=== PATIENT | male | born 1965 | race Caucasian/White ===

== ENCOUNTER 2022-12-31 13:11 | Emergency (ER) | payer OTHER, SELFPAY ==
--- NOTE | ~2022-12-31 | XR_ITS ---
XR chest 2V DATE: 12/31/2022 13:37 INDICATION: Left-sided chest pain starting yesterday TECHNIQUE: PA and lateral views COMPARISON: None FINDINGS: Normal heart size. No hilar or mediastinal enlargement. No pulmonary infiltrate or consolid ation, pleural effusion or pulmonary vascular congestion or pneumothorax. Degenerative spurring of th e lower thoracic spine. IMPRESSION: No active cardiopulmonary disease Reviewed, dictated and finalized at location [facility].
--- NOTE | ~2022-12-31 | CT_ITS ---
EXAMINATION: CTA chest PE protocol DATE: 12/31/2022 16:16 INDICATION: Elevated D-dimer TECHNIQUE: Computed tomography angiography (CTA) of the chest was performed with 100 mL Omnipaque-350 intravenous contrast timed to evaluate the pulmonary arteries. Coronal maximum intensity projection 3D-reconstructions were created by the technologist. The dose-length product (DLP) was 1204.90 mGy-cm . Automated exposure control and iterative reconstruction technique were employed. COMPARISON: None. FINDINGS: Lung parenchyma and airways: Small focus of right medial basal scar/atelectasis, otherwise clear. Pleura: Unremarkable. Thoracic inlet, axillae and chest wall: Unremarkable. Thoracic aorta: Normal. Mediastinum: Normal. Heart and pericardium: Normal. Coronary artery calcifications: Absent. Upper abdomen: No significant finding. Bones: No acute osseous finding. Pulmonary arteries: Study quality: Mild motion artifact, overall diagnostic. No pulmonary emboli dete cted. IMPRESSION: No CT evidence of acute pulmonary embolus. No acute intrathoracic process detected. Reviewed, dictated and finalized at location [facility]. IMPRESSION: No CT evidence of acute pulmonary embolus. No acute intrathoracic process detec bhupendra.
--- NOTE | 2022-12-31 13:12 | ECG_ITS ---
Measurements Intervals [place] Rate: 68 P: 35 NE: 165 QRS: -12 QRSD: 98 T: 39 QT: 400 QTc: 428 Interpretive Statements SINUS RHYTHM NORMAL ECG NO PREVIOUS ECG AVAILABLE FOR COMPARISON Electronically Signed On 01-01-2023 16:49:10 CDT by Alexandre Smith M.D.
[2022-12-31 13:21] VITALS: BP 141/90; PULSE 71; RESP 20; TEMP 36.6; O2SAT 96
[2022-12-31] MEDS: ASPIRIN 81 MG CHEWABLE TABLET 324 MG PO (13:38)
[2022-12-31 13:43] LABS: Basophils Absolute Auto 0.1 K/mm3 (0.0-0.1); Basophils Percent Auto 0.6 % (0.2-1.2); Eosinophils Absolute Auto 0.3 K/mm3 (0-0.3); Eosinophils Percent Auto 3.2 % (0-4.4); Hematocrit 54.9 % (42.0-52.0); Immature Granulocyte Absolute 0.05 K/mm3 (0.00-0.031); Immature Granulocyte Percent A 0.6 % (0-0.5); Lymphocytes Absolute Auto 1.99 K/mm3 (0.9-3.2); Lymphocytes Percent Auto 22.4 % (18.3-44.2); Mean Corpuscular HGB Conc 32.8 g/dl (32-36); Mean Corpuscular Hemoglobin 29.2 pg (26-34); Mean Corpuscular Volume 89.1 fl (80-100); Mean Platelet Volume 8.9 fl (7.4-10.4); Monocytes Absolute Auto 0.8 K/mm3 (0.1-0.6); Monocytes Percent Auto 8.8 % (2.6-8.5); Neutrophils Absolute Auto 5.7 K/mm3 (1.3-6.7); Neutrophils Percent Auto 64.4 % (45.5-73.1); Platelet Count Result 344 k/mm3 (150-375); Red Blood Count 6.16 M/mm3 (4.6-6.20); Red Cell Distribution Width 13.6 % (11.5-14.5); White Blood Count 8.9 K/mm3 (4.5-10.0)
[2022-12-31 13:55] LABS: INR 1.1; Prothrombin Time 13.6 Seconds (11.1-14.7)
[2022-12-31 13:56] LABS: Partial Thromboplastin Time 29.1 SECONDS (22.3-36.8)
[2022-12-31 13:59] LABS: Alanine Aminotransferase 65 U/L (6-50); Albumin Level 4.9 g/dL (3.5-5.1); Alkaline Phosphatase 75 U/L (38-126); Anion Gap 8 mmol/L (8-16); Aspartate Amino Transferase 50 U/L (17-59); Bilirubin,Total 1.5 mg/dL (0.2-1.3); Blood Urea Nitrogen 18 mg/dL (9-20); Calcium 9.4 mg/dL (8.4-10.2); Carbon Dioxide 32 mmol/L (22-30); Chloride 103 mmol/L (98-107); Estimated CRCL calculation 107 ml/min; Estimated Glomerular Filt Rate > 60; Glucose 87 mg/dL (65-110); Lipase 130 U/L (23-300); Potassium 4.3 mmol/L (3.4-5.0); Sodium 143 mmol/L (137-145)
[2022-12-31 14:11] LABS: Troponin I < 0.012 ng/mL (0.000-0.034)
--- NOTE | 2022-12-31 14:46 | ED.GENADULT ---
HPI - General Adult General Chief complaint: Chest Pain Stated complaint: chest pain Time Seen by Provider: 12/31/22 13:28 History of Present Illness HPI narrative: 57-year-old male presented the emergency department for evaluation of left-sided chest pain that is worsened with movement and deep inspiration. Patient states the pain started last night and was at his left lateral chest but has been more anterior today. Patient denies any radiation of the chest pain to his back neck or arms. Patient denies any associated shortness of breath. Patient denies any prior cardiac history. Patient has not had a stress test. Patient states he does take testosterone therapy for approximately last 15 years but has had no prior history of PE or DVT. Patient denies any recent coughs colds or fevers. Patient denies any falls or injuries. Related Data Allergies Allergy/AdvReac Type Severity Reaction Status Date / Time No Known Allergies Allergy Verified 12/31/22 13:33 Review of Systems Review of Systems: All systems reviewed & are unremarkable except as noted in HPI and below Exam Narrative: APPEARANCE: Well appearing, no pain, no distress, well-nourished. HEAD: normocephalic, atraumatic. EYES: PERRLA/EOMI, conjunctivae clear. NOSE: Normal no drainage NECK: Supple. No adenopathy, no masses. RESPIRATORY: Airway patent, respirations nonlabored. Clear to auscultation bilaterally, no rales, rhonchi, wheezing. CARDIOVASCULAR: Regular rate and rhythm without murmurs rubs or gallops. ABDOMINAL: Soft, nontender, nondistended, normal bowel sounds MUSCULOSKELETAL: Moves all extremities. Strength/ROM intact, No edema, No calf tenderness. NEURO: Alert. Cranial nerves II through XII intact. Good gait. Good coordination SKIN: Warm, dry. Normal Color. No vesicular rash overlying the area of left chest pain Course Course Emergency Course: 37 male presented to the ED with evaluation of pleuritic left-sided chest pain. EKG showed normal sinus rhythm with no evidence of acute STEMI. Patient is afebrile with no leukocytosis. Patient's INR is 1.1. Patient's CMP is within normal limits. Patient does have a normal initial troponin. Chest x-ray shows no active cardiopulmonary disease. Patient was treated with IV Toradol. D-dimer was ordered to evaluate for pulmonary embolism. Patient and family were updated on the results of the initial labs and exam. All questions and concerns were addressed at this point. D-dimer was elevated so CTA PE chest was ordered to evaluate for pulmonary embolism. Patient was updated on the plan for additional imaging. Patient is afebrile with no leukocytosis. Patient's CT showed no evidence of pulmonary embolism and no acute intrathoracic process. No concern of ACS. Patient's symptoms are consistent with pleurisy. Patient family were updated on the results of the work-up and was encouraged to have close follow-up with his primary care physician for additional outpatient cardiac testing. All question concerns were addressed and patient was well-appearing at time of discharge Vital Signs Vital signs: Vital Signs Temperature 97.8 F 12/31/22 13:21 Pulse Rate 71 12/31/22 13:21 Respiratory Rate 20 12/31/22 13:21 Blood Pressure 141/90 H 12/31/22 13:21 Pulse Oximetry 96 12/31/22 13:21 Oxygen Delivery Room Air 12/31/22 13:21 Temperature 97.8 F 12/31/22 13:21 Pulse Rate 62 12/31/22 18:07 Respiratory Rate 16 12/31/22 18:07 Blood Pressure 119/91 H 12/31/22 18:07 Pulse Oximetry 100 12/31/22 18:07 Oxygen Delivery Room Air 12/31/22 13:21 Medical Decision Making Vital Signs Vital Signs: Vital Signs Temperature 97.8 F 12/31/22 13:21 Pulse Rate 71 12/31/22 13:21 Respiratory Rate 20 12/31/22 13:21 Blood Pressure 141/90 H 12/31/22 13:21 Pulse Oximetry 96 12/31/22 13:21 Oxygen Delivery Room Air 12/31/22 13:21 Temperature 97.8 F 12/31/22 13:21 Pulse Rate 62 0
[2022-12-31 15:21] LABS: D Dimer 0.58 ug/mL (<0.48)
[2022-12-31 17:15] LABS: Troponin I < 0.012 ng/mL (0.000-0.034)
[2022-12-31 17:38] VITALS: BP 106/73; PULSE 71; RESP 18; O2SAT 98
[2022-12-31 18:01] VITALS: BP 119/91
[2022-12-31 18:07] VITALS: BP 119/91; PULSE 62; RESP 16; O2SAT 100
== END 2022-12-31 20:16 | disposition home or self-care (01) ==
PROVIDERS: Emergency Provider Emergency Medicine; PCP Internal Medicine
DX: R07.89 Other chest pain (principal)
CPT/HCPCS: 36415; 71046; 71275; 80053; 83690; 84484; 85025; 85380; 85610; 85730; 93005; 99284; A9270; Q9967

== ENCOUNTER 2023-03-10 11:44 | Emergency (ER) | payer OTHER, SELFPAY ==
--- NOTE | ~2023-03-10 | XR_ITS ---
XR chest 2V DATE: 03/10/2023 13:25 INDICATION: Lucent defect identified in the posterior left parietal bone on 03/10/2023 CT brain; diffe rential diagnosis includes metastasis, myeloma, possibly normal variant such as a venous alves. Lookin g for possible primary neoplasm. TECHNIQUE: PA and lateral views COMPARISON: December 31, 2022 CTA chest December 31, 2022 2 view chest FINDINGS: Normal heart size. No hilar or mediastinal enlargement. No pulmonary infiltrate or consolidation, pleural effusion or pulmonary vascular congestion or pneumo thorax is detected. No osteolytic or osteosclerotic lesions are identified. IMPRESSION: No active cardiopulmonary disease Reviewed, dictated and finalized at location A.
--- NOTE | ~2023-03-10 | CT_ITS ---
EXAMINATION: CT cervical spine wo con DATE: 03/10/2023 12:14 INDICATION: Head injury, neck pain TECHNIQUE: Computed tomography (CT) of the cervical spine was performed without intravenous contrast. Automated exposure control and iterative reconstruction technique were employed. Exam dose: 547.84 mGy-cm total exam DLP. COMPARISON: None FINDINGS: There is straightening of cervical spine which may be due to positioning and/or muscle spas m. Normal atlantooccipital articulation. C1 and C2 are normally aligned and the odontoid process is intact. No recent fracture or dislocation or locked facet or prevertebral soft tissue swelling is noted. There is degenerative disc disease throughout the cervical spine, mild at C2-3, moderately severe at C3-4, moderate at C4-5, relatively severe at C5-C6 and severe at C6-7. There is approximately 2.6 mm anterolisthesis at C3-4 and slight anterolisthesis at C4-5. There is pr ominent degenerative change at the apophyseal joints and uncovertebral joints.. IMPRESSION: Prominent cervical spondylosis; no fracture or dislocation is detected Reviewed, dictated and finalized at [facility]. Reviewed, dictated and finalized at location [facility]. IMPRESSION: Prominent cervical spondylosis; no fracture or dislocation is dete cted
--- NOTE | ~2023-03-10 | CT_ITS ---
EXAMINATION: CT brain wo con DATE: 03/10/2023 12:14 INDICATION: Head injury. Laceration at the vertex. TECHNIQUE: Computed tomography (CT) of the head was performed without intravenous contrast. The mA wa s adjusted according to patient size. Iterative reconstruction technique was employed. Exam dose: 60 5.33 mGy-cm total exam DLP. COMPARISON: None FINDINGS: No intracranial mass lesion or hemorrhage or cerebrovascular accident is detected. No midli ne shift or mass effect. Normal ventricular size. No subdural or epidural hematoma is detected. The orbital contents are unremarkable. Small mucous retention cyst of the anteromedial left maxillary sinus. The included paranasal sinuses and mastoid air cells are otherwise unremarkable. An approximately 1.4 cm lucent defect is noted in the posterior aspect of the left parietal bone, of uncertain significance; metastasis and myeloma would be considerations No fracture or bone destruction of the cranial vault is noted otherwise. IMPRESSION: 1.4 cm lucent defect of the posterior left parietal bone; the vertebral diagnosis includ es metastasis in addition to myeloma. Clinical correlation is advised Small mucus retention cyst of left maxillary sinus No significant intracranial abnormality is noted Reviewed, dictated and finalized at [facility]. Reviewed, dictated and finalized at location [facility]. IMPRESSION: 1.4 cm lucent defect of the posterior left parietal bone; the vert ebral diagnosis includes metastasis in addition to myeloma. Clinical correlatio n is advised Small mucus retention cyst of left maxillary sinus No significant intracranial abnormality is noted
[2023-03-10 11:45] VITALS: BP 135/80; PULSE 75; RESP 16; TEMP 36.8; O2SAT 98
--- NOTE | 2023-03-10 11:56 | ED.HEATRA ---
HPI - Head Injury General Chief complaint: Head Injury Stated complaint: head injury Time Seen by Provider: 03/10/23 11:50 History of Present Illness HPI Narrative: Patient is a 57-year-old male here for evaluation of laceration to his scalp sustained earlier today. Patient states that he was driving a t post in his yard when part of the post sprung back and struck him in the head. He denies loss of consciousness. He presented to an urgent care and they recommended ED evaluation for CT scan. Patient denies loss of consciousness, use of blood thinners, nausea or vomiting. Reports only mild headache and neck pain. Patient has no known history of malignancy. Related Data Allergies Allergy/AdvReac Type Severity Reaction Status Date / Time No Known Allergies Allergy Verified 03/10/23 13:01 Review of Systems Review of Systems: Gen.: Denies fevers or chills Eyes: Denies eye pain or visual change ENT: Denies congestion Respiratory: Denies shortness of breath or cough CV: Denies chest pain or palpitations GI: Denies abdominal pain nausea, emesis or diarrhea denies burning, urgency, frequency or hematuria Musculoskeletal: Denies back pain or muscle pain Neuro: Denies numbness, tingling, weakness or focal weakness Skin: Reports laceration Except as documented, all other systems reviewed and negative Exam Narrative: APPEARANCE: No acute distress, nontoxic, resting in bed EYES: EOMI HEENT: There is a T-shaped abrasion/laceration to the scalp with active bleeding, measuring about 2 x 3 cm RESPIRATORY: No respiratory distress Clear to auscultation bilaterally with no rhonchi wheezing or rales. CARDIOVASCULAR: Regular rate and rhythm without murmurs rubs or gallops. ABDOMINAL: Soft, nontender, nondistended, no rebound or guarding MUSCULOSKELETAL: No midline tenderness along the C, T or L-spine. Moves all extremities. No clubbing, cyanosis or edema. NEURO: Awake and alert. Following commands, speech normal, no focal deficits SKIN:: Warm, dry. No rashes lesions or abrasions PSYCHIATRIC: Normal affect/mood Course Vital Signs Vital signs: Vital Signs Temperature 98.2 F 03/10/23 11:45 Pulse Rate 75 03/10/23 11:45 Respiratory Rate 16 03/10/23 11:45 Blood Pressure 135/80 03/10/23 11:45 Pulse Oximetry 98 03/10/23 11:45 Oxygen Delivery Room Air 03/10/23 11:45 Temperature 98.2 F 03/10/23 11:45 Pulse Rate 57 L 03/10/23 15:10 Respiratory Rate 16 03/10/23 15:10 Blood Pressure 138/90 03/10/23 15:10 Pulse Oximetry 99 03/10/23 15:10 Oxygen Delivery Room Air 03/10/23 12:59 Procedures Laceration Laceration 1: Date: 03/10/23 Time: 13:13 Site: scalp Description: other (T-shaped) Local Anesthetic: other anesthetic (LET) Pre-repair: wound explored and irrigated ====== Skin Level ====== Skin layer closed with: vega Number of sutures: 5 Technique: simple, interrupted ====== Subcutaneous Layer ====== ====== Muscle Layer ====== ====== Tendon Layer ====== MDM - Head Injury MDM Narrative Medical decision making narrative: 57 year old male here for evaluation of headache and neck pain after sustaining a laceration from a T post this morning. The laceration was repaired with vega ,referred from for head CT. ct c spine with spondylosis, CT with no traumatic findings but does show non-specific lesion in the parietal bone, could be metastases, normal variant or possible myeloma. Patient unaware of any cancer dx. Basic labs unremarkable; alk phos/calcium/renal function normal. CXR clear; did have recent CT chest in December that showed nothing suspicious for malignancy. Spoke with Dr. Hdz, hem/onc, recommends serum/urine electrophoresis and immunofixation and will follow up in office for more tests as necessary. Patient made aware of the findings and need for f/u. Given instructions on staple care and teta
[2023-03-10] MEDS: TETANUS,DIPHTHERIA,AC PERTUSSIS ADULT (0.5 ML) BOOSTRIX IM (12:37)
[2023-03-10] MEDS: LIDOCAINE, EPINEPHRINE, TETRACAINE VISCOUS SOLN 3 ML TOPICAL (12:38)
[2023-03-10 13:24] LABS: Basophils Absolute Auto 0.1 K/mm3 (0.0-0.1); Basophils Percent Auto 0.7 % (0.2-1.2); Eosinophils Absolute Auto 0.2 K/mm3 (0-0.3); Eosinophils Percent Auto 2.7 % (0-4.4); Hematocrit 53.4 % (42.0-52.0); Hemoglobin 17.5 g/dL (14.0-18.0); Immature Granulocyte Absolute 0.05 K/mm3 (0.00-0.031); Immature Granulocyte Percent A 0.6 % (0-0.5); Lymphocytes Absolute Auto 1.96 K/mm3 (0.9-3.2); Mean Corpuscular HGB Conc 32.8 g/dl (32-36); Mean Corpuscular Hemoglobin 29.3 pg (26-34); Mean Corpuscular Volume 89.4 fl (80-100); Mean Platelet Volume 8.9 fl (7.4-10.4); Monocytes Absolute Auto 0.8 K/mm3 (0.1-0.6); Monocytes Percent Auto 9.6 % (2.6-8.5); Neutrophils Absolute Auto 5.4 K/mm3 (1.3-6.7); Neutrophils Percent Auto 63.4 % (45.5-73.1); Platelet Count Result 286 k/mm3 (150-375); Red Blood Count 5.97 M/mm3 (4.6-6.20); Red Cell Distribution Width 14.2 % (11.5-14.5); White Blood Count 8.5 K/mm3 (4.5-10.0)
[2023-03-10 13:37] LABS: Alanine Aminotransferase 50 U/L (6-50); Albumin Level 4.4 g/dL (3.5-5.1); Alkaline Phosphatase 74 U/L (38-126); Anion Gap 5 mmol/L (8-16); Aspartate Amino Transferase 41 U/L (17-59); Bilirubin,Total 1.4 mg/dL (0.2-1.3); Blood Urea Nitrogen 15 mg/dL (9-20); Calcium 8.6 mg/dL (8.4-10.2); Carbon Dioxide 30 mmol/L (22-30); Chloride 106 mmol/L (98-107); Estimated CRCL calculation 106 ml/min; Estimated Glomerular Filt Rate > 60; Glucose 100 mg/dL (65-110); Potassium 4.5 mmol/L (3.4-5.0); Sodium 141 mmol/L (137-145)
[2023-03-10 15:10] VITALS: BP 138/90; PULSE 57; RESP 16; O2SAT 99
[2023-03-15 20:07] LABS: Creatinine, Random Urine 212 mg/dL (20-320)
== END 2023-03-10 15:10 | disposition home or self-care (01) ==
PROVIDERS: Emergency Provider Physician Assistant; PCP Internal Medicine
DX: S01.01XA Laceration without foreign body of scalp, initial encounter (principal); M89.9 Disorder of bone, unspecified; Z23 Encounter for immunization; W22.8XXA Striking against or struck by other objects, initial encounter
CPT/HCPCS: 12001; 36415; 70450; 71046; 72125; 80053; 82570; 84156; 84166; 85025; 86334; 86335; 90471; 90715; 99284

== ENCOUNTER 2023-04-03 07:36 | Outpatient (CLI) | payer OTHER, SELFPAY ==
--- NOTE | ~2023-04-03 | CT_ITS ---
Clinical Indication: Metastatic neoplasm CT Scan of the Chest, Abdomen, and Pelvis with Contrast: Technique: Contiguous sections were acquired throughout the chest, abdomen, and pelvis after intraven ous administration of 100 cc of Omnipaque 350. Dose reduction technique was used on this scan by ann hyatting automated exposure control and iterative reconstruction technique. The dose-length product (DL P) was 2111.10 mGy-cm. COMPARISON: 12/31/2022 Findings: There is no evidence of any significant mediastinal, hilar or axillary lymphadenopathy. The mediastin al soft tissues and vascular structures appear normal. There is no evidence of pleural or pericardial effusion. The lungs are clear. No pulmonary nodules or infiltrates are noted. The liver, spleen, pancreas, gallbladder, adrenals and kidneys are within normal limits. No evidence of aortic aneurysm. No lymphadenopathy. No bowel obstruction or bowel wall thickening. There is no evidence to suggest acute appendicitis. Urinary bladder is unremarkable. Prostate gland and seminal vesicles are unremarkable. No ascites. Impression: No significant abnormalities seen. No evidence for active malignancy or metastatic disease. Reviewed, dictated and finalized at [facility]. Impression: No significant abnormalities seen. No evidence for active malignancy or metasta tic disease.
[2023-04-03 09:19] LABS: Immunoglobulin A 70 mg/dL (70-400); Immunoglobulin G 1059 mg/dL (700-1600); Immunoglobulin M 61 mg/dL (40-230)
[2023-04-03 09:39] LABS: Prostate Specific Antigen 1.7 ng/mL (< OR = 4.0)
[2023-04-06 09:39] LABS: Kappa\\Lambda Light Chains 1.55 (0.26-1.65); Lambda Light Chain 13.9 mg/L (5.7-26.3)
== END 2023-04-03 07:37 | disposition home or self-care (01) ==
PROVIDERS: PCP Internal Medicine; Visit Provider Internal Medicine Hematology & Oncology
DX: C79.9 Secondary malignant neoplasm of unspecified site (principal); M89.9 Disorder of bone, unspecified
CPT/HCPCS: 36415; 71260; 74177; 82784; 83883; 84153; Q9967

== ENCOUNTER 2023-07-13 10:41 | Outpatient (CLI) | payer OTHER, SELFPAY ==
[2023-07-13 10:55] LABS: Basophils Percent Auto 0.4 % (0.2-1.2); Eosinophils Absolute Auto 0.4 K/mm3 (0-0.3); Eosinophils Percent Auto 4.1 % (0-4.4); Hematocrit 53.3 % (42.0-52.0); Hemoglobin 17.6 g/dL (14.0-18.0); Immature Granulocyte Absolute 0.05 K/mm3 (0.00-0.031); Immature Granulocyte Percent A 0.6 % (0-0.5); Lymphocytes Absolute Auto 2.14 K/mm3 (0.9-3.2); Lymphocytes Percent Auto 23.6 % (18.3-44.2); Mean Corpuscular Hemoglobin 28.9 pg (26-34); Mean Corpuscular Volume 87.4 fl (80-100); Mean Platelet Volume 8.7 fl (7.4-10.4); Monocytes Absolute Auto 0.8 K/mm3 (0.1-0.6); Monocytes Percent Auto 9.2 % (2.6-8.5); Neutrophils Absolute Auto 5.6 K/mm3 (1.3-6.7); Neutrophils Percent Auto 62.1 % (45.5-73.1); Platelet Count Result 287 k/mm3 (150-375); White Blood Count 9.1 K/mm3 (4.5-10.0)
== END 2023-07-13 10:42 | disposition home or self-care (01) ==
LOC: ANHLAB 10:43
PROVIDERS: PCP Internal Medicine; Visit Provider Internal Medicine Hematology & Oncology
DX: D75.1 Secondary polycythemia (principal)
CPT/HCPCS: 36415; 85025